=== PATIENT | female | born 1955 | race Two or more races ===

== ENCOUNTER → 2024-03-11 19:37 | Outpatient (REF) | payer MEDICARE, SELFPAY ==
[2024-03-11 20:39] LABS: PT 59.9 Sec (11.4-14.6)
[2024-03-11 21:05] LABS: INR 6.73
== END ==
LOC: OLAB 19:37
PROVIDERS: ATTENDING PHYSICIAN Emergency Medicine
DX: I48.91 Unspecified atrial fibrillation (principal); I34.1 Nonrheumatic mitral (valve) prolapse
CPT/HCPCS: 85610

== ENCOUNTER → 2024-03-13 10:37 | Outpatient (REF) | payer MEDICARE, SELFPAY ==
[2024-03-13 12:31] LABS: INR 4.54; PT 43.2 Sec (11.4-14.6)
[2024-03-13 12:32] LABS: APTT 58.5 Sec (23.4-35.0)
== END ==
LOC: REG 10:37
PROVIDERS: ATTENDING PHYSICIAN Internal Medicine Interventional Cardiology
DX: Z79.01 Long term (current) use of anticoagulants (principal); R79.1 Abnormal coagulation profile
CPT/HCPCS: 36415; 85610; 85730

== ENCOUNTER 2025-06-24 14:00 | Outpatient (RCR) | payer MEDICARE, SELFPAY | END 2025-06-24 23:59 | disposition home or self-care (01) | LOC: RPT 14:00 | DX: G20.A1 Parkinson's disease without dyskinesia, without mention of fluctuations (principal); Z73.6 Limitation of activities due to disability; M62.81 Muscle weakness (generalized); R26.89 Other abnormalities of gait and mobility | CPT/HCPCS: 97110; 97112; 97162; 97166; 97530; 97535 ==

== ENCOUNTER 2025-07-04 11:52 | Outpatient (RCR) | payer MEDICARE, SELFPAY | END 2025-07-06 14:20 | disposition home or self-care (01) | LOC: RPT 11:52 | PROVIDERS: ATTENDING PHYSICIAN Psychiatry & Neurology Neurology | DX: G20.A1 Parkinson's disease without dyskinesia, without mention of fluctuations (principal); Z73.6 Limitation of activities due to disability; M62.81 Muscle weakness (generalized); R26.89 Other abnormalities of gait and mobility | CPT/HCPCS: 97110; 97112; 97530 ==